=== PATIENT | male | born 1980 | race Caucasian/White ===

== ENCOUNTER 2017-06-19 06:20 | Day surgery (SDC) | payer OTHER ==
[~2017-06-19 06:20] MED LIST: INTESTINEX680 MG PO; KETO10TA2 PO; PERCOCET 5/3251 TAB PO
== END 2017-06-19 10:50 | disposition home or self-care (01) ==
LOC: AMB-ENDOS 06:20
DX: K57.30 Diverticulosis of large intestine without perforation or abscess without bleeding (principal)